=== PATIENT | female | born 1970 | race Caucasian/White ===

== ENCOUNTER 2019-12-18 11:06 | Emergency (ER) | payer OTHER ==
[~2019-12-18] VITALS: Ht 162.6 cm; Wt 77.1 kg
== END 2019-12-18 14:12 | disposition home or self-care (01) ==
LOC: ED 11:06
DX: S93.401A Sprain of unspecified ligament of right ankle, initial encounter (principal); S60.012A Contusion of left thumb without damage to nail, initial encounter; S20.312A Abrasion of left front wall of thorax, initial encounter; S50.811A Abrasion of right forearm, initial encounter; Z88.0 Allergy status to penicillin; V89.2XXA Person injured in unspecified motor-vehicle accident, traffic, initial encounter
CPT/HCPCS: 73610; 99284-25

== ENCOUNTER 2025-07-08 17:40 | Inpatient (IN) | payer SELFPAY ==
[~2025-07-08] VITALS: Ht 162.6 cm; Wt 101.2 kg
--- NOTE | ~2025-07-08 | EKG ---
[facility] [address] [facility] [place], [place] [address] Draft EK completed, results pending confirmation PATIENT NAME: LEONOR GIRONPAULINO SALGADOE Electrocardiogram DATE OF : 68 PHYSICIAN: PRELIMINARY REPORT #: [id number] REPORT IS CONFIDENTIAL AND NOT TO BE RELEASED WITHOUT AUTHORIZATION
[2025-07-08 18:11] LABS: BASOPHILS 0.8 % (0.1-1.2); EOSINOPHILS 1.3 % (0.7-5.8); LYMPHOCYTES 18.8 % (19.3-51.7); MCH 27.8 PG (25.6-32.2); MCHC 32.8 g/dL (32.2-35.5); MCV 84.8 fL (79.4-94.8); MONOCYTES 5.6 % (4.7-12.5); NEUTROPHILS 72.8 % (34.0-71.1); RBC 5.07 M/uL (3.93-5.22)
[2025-07-08] MEDS ORDERED: IBLOOD GLUCOSE TEST STRIP 1 EA TEST XX ONE (18:15)
[2025-07-08 18:26] LABS: INR 1.0 (0.80-1.30); PROTIME 12.5 Sec (11.2-14.2)
[2025-07-08] MEDS ORDERED: SODIUM CHLORIDE 0.9% 1,000 ML IV PRN (18:30)
[2025-07-08 18:32] LABS: ALT (SGPT) 22.0 U/L (14-59); AST (SGOT) 12.0 U/L (15-37); GLOMERULAR FILTRATION RATE,EST 64.0 mL/min (>60); PROTEIN, TOTAL 7.9 g/dL (6.4-8.2); UREA NITROGEN 14.0 mg/dL (7-18)
[2025-07-08 19:09] LABS: AMPHETAMINES, URINE NEGATIVE (NEGATIVE); BARBITURATES, URINE NEGATIVE (NEGATIVE); BENZODIAZEPINE, URINE NEGATIVE (NEGATIVE); CANNABINOID, URINE NEGATIVE (NEGATIVE); COCAINE, URINE NEGATIVE (NEGATIVE); ECSTASY, URINE NEGATIVE (NEGATIVE); FENTANYL, URINE NEGATIVE (NEGATIVE); METHADONE, URINE NEGATIVE (NEGATIVE); OPIATES, URINE NEGATIVE (NEGATIVE); OXYCODONE, URINE NEGATIVE (NEGATIVE); PHENCYCLIDINE, URINE NEGATIVE (NEGATIVE)
[2025-07-08] MEDS ORDERED: AMLODIPINE BESYLATE 5 MG TAB PO SCH (19:29)
[2025-07-08] MEDS ORDERED: ASPIRIN 81 MG CHEW PO ONE (19:30)
[2025-07-08 20:49] VITALS: BP 180/102
--- NOTE | 2025-07-08 23:58 | NUR ---
AWAKE, WATCHING TV, NO C/O PAIN, TELE#[address] SR HR 90
[2025-07-09] VITALS (11 sets, daily range): BP systolic 144–174; BP diastolic 83–110
--- NOTE | 2025-07-09 01:42 | NUR ---
Awake, no c/o pain, Up to BRP, voided, back to bed, repositions self in bed. no c/o ligtheadness or dizziness. Coop with vitals and assssments. BP174/97 denies h/a or flashing lights. no CP, tele#[address], SR
--- NOTE | 2025-07-09 02:26 | NUR ---
PT STANDING EDGE OF BED, PER TELE HR WENT UP TO 122, PT DENIES CP
--- NOTE | 2025-07-09 04:36 | NUR ---
Has been awake most of this shift. on room air, tele#[address], SR HR89 at this time. no c/o pain or lightheadness
[2025-07-09 05:41] LABS: BASOPHILS 0.6 % (0.1-1.2); EOSINOPHILS 2.5 % (0.7-5.8); LYMPHOCYTES 20.4 % (19.3-51.7); MCH 28.8 PG (25.6-32.2); MCHC 33.4 g/dL (32.2-35.5); MCV 86.3 fL (79.4-94.8); MONOCYTES 7.7 % (4.7-12.5); NEUTROPHILS 68.2 % (34.0-71.1); RBC 4.68 M/uL (3.93-5.22)
--- NOTE | 2025-07-09 05:45 | NUR ---
Awake, denies c/o pain or s/sx htn. On room air, Repositions self in bed.
[2025-07-09 05:56] LABS: ALT (SGPT) 20.0 U/L (14-59); AST (SGOT) 13.0 U/L (15-37); GLOMERULAR FILTRATION RATE,EST 69.0 mL/min (>60); PROTEIN, TOTAL 7.3 g/dL (6.4-8.2); UREA NITROGEN 11.0 mg/dL (7-18)
--- NOTE | 2025-07-09 08:30 | NUR ---
Patient is awake, alert and oriented x3, no acute distress. Patient reports her vision is clear this morning. Updated patient regarding new order from MRI study, pt receptive to plan of care. Patient denies pain at this time. Vital signs are stable, afebrile. Patient's speech is clear and appropriate.
--- NOTE | 2025-07-09 09:06 | NUR ---
VELASQUEZ ALEX UPDATED PT WHITE BOARD AND OFFERED PATIENT AM AND ORAL CARE, PATIENT DENIED REQUEST AND WENT BACK TO EATING BREAKFAST. VELASQUEZ LAEX STATED HE WOULD BE BACK IN AN HOUR TO CHECK PATIENT VITAL SIGNTS. PATIENT STATED NO FURTHER NEEDS, CALL LIGHT WITHIN REACH.
--- NOTE | 2025-07-09 09:35 | NUR ---
Roge from MRI here to transport patient via wheelchair to Imaging for MRI. Screening form completed by Primary RN and patient. Pt is S/L, tele removed for MRI. CCU notified.
--- NOTE | 2025-07-09 10:35 | NUR ---
Notifed by JOSLYN Viveros that this pt is asking about having her IV removed. Primary RN notified.
--- NOTE | 2025-07-09 10:46 | NUR ---
TRANSPORTATION LEAD ISAI MEASURED PATIENT VS AND I&O, CALL LIGHT WITHIN REACH, NO FURTHER NEEDS.
[2025-07-09] MEDS ORDERED: ACETAMINOPHEN 325 MG TAB PO PRN (11:15)
[2025-07-09] MEDS ORDERED: PHARMACY RENAL DOSE ADJUSTMENT 1 DOSE MISC PO SCH (12:00)
[2025-07-09] MEDS ORDERED: MAGNESIUM HYDROXIDE/AL HYDROX 30 ML CUP PO PRN (12:30)
--- NOTE | 2025-07-09 15:59 | NUR ---
Noted that the pt's telemetry showed her HR up into the 130s at the same time that CCU rang the nurses' station. I found the pt to be kneeling on the couch in her room. She is A&O, in no apparent distress, stating she was just walking around her room to get some movement in. She is asking about when we think she might get to go home. I advised her that I will call the hospitalist to let him know that her MRI results are available so he can make a decision. She denies needs at this time. She also denies any symptoms or feeling how she felt at admission.
[2025-07-09] MEDS ORDERED: AMLODIPINE BESY10 MG PO (16:03)
[2025-07-09] MEDS ORDERED: MELATONIN 3 MG TAB PO PRN (21:00)
[2025-07-10] MEDS ORDERED: AMLODIPINE BESYLATE 10 MG TAB PO SCH (09:00)
== END 2025-07-09 17:20 | disposition home or self-care (01) | DRG 69 ==
LOC: ED 17:40 → MS 19:33
PROVIDERS: Emergency Medicine; ADMIT Internal Medicine; ATTEND Internal Medicine
DX: G45.9 Transient cerebral ischemic attack, unspecified (principal); I16.1 Hypertensive emergency; I16.0 Hypertensive urgency; G43.B0 Ophthalmoplegic migraine, not intractable; Z85.9 Personal history of malignant neoplasm, unspecified; Z98.51 Tubal ligation status; Z98.890 Other specified postprocedural states; Z88.0 Allergy status to penicillin
CPT/HCPCS: 36415; 70450; 70496; 70498; 70551; 71045; 80053; 80307; 84484; 85025; 85610; 85730; 93005; 93010; A9270; J7030; Q9967